=== PATIENT | male | born 1980 | race Caucasian/White ===

== ENCOUNTER 2017-02-13 02:55 | Emergency (ER) | payer MEDICAID ==
[~2017-02-13] VITALS: Ht 165.1 cm; Wt 77.0 kg
[~2017-02-13 02:55] MED LIST: FOLI-49 PO; MULTI PO; PANT40TA3 PO
[2017-02-13 03:05] VITALS: Ht 165.1 cm; Wt 77.0 kg
[2017-02-13] MEDS ORDERED: ONDANSETRON 4 MG INJ IV STA ×2 (03:33→06:05)
[2017-02-13] MEDS ORDERED: SOD CHLORIDE 0.9% 1,000 ML IV STA (03:33)
[2017-02-13] MEDS ORDERED: morphine 4 MG/ML VIAL IV STA (03:33)
--- NOTE | 2017-02-13 03:37 | ERD ---
ER Documentation Chief Complaint Date/Time DATE: 02/13/17 TIME: 03:35 Chief Complaint epigastric pain radiating to sides since last nite,last intake was alcohol HPI Patient is a 36-year-old male who presents with sudden onset, constant, progressive, severe epigastric pain radiating to the left upper and right upper quadrants of the abdomen. Symptoms was around 6 PM last night. Patient states that he thinks he ate some bad [place] food. He states he has been vomiting numerous times with small chunks of blood. He is also had diarrhea that is yellow. He states that he has subjective fever. He denies back pain. He reports having alcohol 2 nights ago, but denies any alcohol last night. ROS All systems reviewed and are negative except as per history of present illness. Medications Home Meds Active Scripts Omeprazole* (Omeprazole*) 20 Mg Capsule., 20 MG PO BID, #20 Prov:GRISELDA BROOKS MD 02/13/17 Ondansetron (Ondansetron Odt) 4 Mg Tab.rapdis, 4 MG PO Q6H Y for NAUSEA AND/OR VOMITING, #15 TAB Prov:GRISELDA BROOKS MD 02/13/17 Multivitamins* (Theragran*) 1 Tab Tab, 1 TAB PO DAILY for 30 Days, TAB Prov:CHEIKH ARGUETA 11/30/15 Folic Acid* (Folic Acid*) 1 Mg Tablet, 1 MG PO DAILY for 30 Days, TAB Prov:CHEIKH ARGUETA 11/30/15 Pantoprazole* (Protonix*) 40 Mg Tablet., 40 MG PO DAILY for 30 Days, TAB Prov:CHEIKH ARGUETA 11/30/15 Allergies Allergies: Coded Allergies: No Known Allergy (Unverified , 11/27/15) PMhx/Soc Past medical history: Hypertension Past surgical history: Tracheostomy Social history: Drinks alcohol, denies illicit drugs History of Surgery: No (not indicated at this time) Anesthesia Reaction: No Hx Neurological Disorder: No Hx Respiratory Disorders: No Hx Cardiac Disorders: No Hx Psychiatric Problems: Yes (DEPRESS) Hx Miscellaneous Medical Probl: Yes (see notes) Hx Alcohol Use: Yes Hx Substance Use: No Hx Tobacco Use: Yes FmHx Family History: No coronary disease, No diabetes Physical Exam Vitals Vital Signs Date Time Temp Pulse Resp B/P Pulse Ox O2 Delivery O2 Flow Rate FiO2 9/24/17 05:53 92 20 153/97 96 Room Air 02/13/17 05:42 98 20 155/105 96 Room Air 02/13/17 04:07 98 20 179/120 96 Room Air 02/13/17 03:05 98.5 125 20 179/95 96 Physical Exam Const: Alert, in mild distress Head: Atraumatic Eyes: Normal Conjunctiva, No pallor, no icterus ENT: Normal External Ears, Nose and Mouth. Neck: Full range of motion..~ No meningismus. Resp: Clear to auscultation bilaterally, No wheezes, no rales Cardio: Tachycardia, regular rhythm, no murmurs Abd: Soft, Nondistended, tender in the epigastrium, left upper quadrant and right upper quadrant. No lower quadrant abdominal tenderness. No rebound. Mild voluntary guarding in upper quadrants. Skin: No petechiae or rashes Back: No midline or flank tenderness Ext: No cyanosis, or edema Neur: Awake and alert, Cranial nerves II through XII intact bilaterally, strength and sensation full in 4 extremes. Slightly slurred speech. Psych: Normal Mood and Affect Result Diagram: 02/13/1731402/13/17314 Results 24 hrs Laboratory Tests Test 02/13/17 03:15 02/13/17 03:50 White Blood Count 7.310^3/ul Red Blood Count 5.2510^6/ul Hemoglobin 14.7g/dl Hematocrit 41.7% Mean Corpuscular Volume 79.4fl Mean Corpuscular Hemoglobin 28.0pg Mean Corpuscular Hemoglobin Concent 35.3g/dl Red Cell Distribution Width 14.9% Platelet Count 65999^3/UL Mean Platelet Volume 10.9fl Neutrophils % 48.0% Lymphocytes % 42.4% Monocytes % 8.1% Eosinophils % 0.5% Basophils % 0.7% Nucleated Red Blood Cells % 0.0/100WBC Neutrophils # 3.510^3/ul Lymphocytes # 3.110^3/ul Monocytes # 0.610^3/ul Eosinophils # 0.010^3/ul Basophils # 0.110^3/ul Nucleated Red Blood Cells # 0.010^3/ul Prothrombin Time 13.6Sec Prothrombin Time Ratio 1.1 INR International Normalized Ratio 1.04 Activated Partial Thromboplast Time 33.4Sec Sodium Level 142mmol/L Potassium Level 4.0mmol/L Chloride Level 106mmol/L Carbon Dioxide Level 21mmol/L Anion Gap 19 Blood Urea Nitrogen 12mg/dl Creatinine 0.71mg/dl Glucose Level 118mg/dl Calcium Level 8.1mg/dl Total Bilirubin 0.3mg/dl Direct Bilirubin 0.00mg/dl Indirect Bilirubin 0.3mg/dl Aspartate Amino Transf (AST/SGOT) 284IU/L Alanine Aminotransferase (ALT/SGPT) 166IU/L Alkaline Phosphatase 106IU/L Total Protein 8.6g/dl Albumin 4.6g/dl Globulin 4.00g/dl Albumin/Globulin Ratio 1.15 Lipase 126U/L Ethyl Alcohol Level 328.0mg/dl Urine Color STRAW Urine Clarity CLEAR Urine pH 5.0 Urine Specific [place] 1.012 Urine Ketones NEGATIVEmg/dL Urine Nitrite NEGATIVEmg/dL Urine Bilirubin NEGATIVEmg/dL Urine Urobilinogen NEGATIVEmg/dL Urine Leukocyte Esterase NEGATIVELeu/ul Urine Hemoglobin NEGATIVEmg/dL Urine Glucose NEGATIVEmg/dL Urine Total Protein NEGATIVEmg/dl Urine Opiates Screen Positive Urine Barbiturates Negative Urine Amphetamines Screen Negative Urine Benzodiazepines Screen Negative Urine Cocaine Screen Negative Urine Cannabinoids Negative Current Medications Medications (Trade) Dose Ordered Sig/Umesh Route PRN Reason Start Time Stop Time Status Last Admin Dose Admin Sodium Chloride (NS) 1,000 ml @ 1,000 mls/hr Q1H STAT IV 02/13/17 03:33 02/13/17 04:32 DC 02/13/17 04:06 Morphine Sulfate (morphine) 4 mg ONCE STAT IV 02/13/17 03:33 02/13/17 03:35 DC 02/13/17 04:06 Ondansetron HCl (Zofran Inj) 4 mg ONCE STAT IV 02/13/17 03:33 02/13/17 03:35 DC 02/13/17 04:06 Pantoprazole (Protonix Iv) 40 mg ONCE ONCE IV 02/13/17 04:00 02/13/17 04:01 DC 02/13/17 04:06 Dicyclomine HCl 10 mg 10 mg ONCE ONCE IM 02/13/17 04:00 02/13/17 04:01 DC 02/13/17 04:00 Sodium Chloride (NS) 1,000 ml @ 1,000 mls/hr Q1H ONCE IV 02/13/17 05:30 02/13/17 06:29 DC 02/13/17 05:28 Labetalol HCl (Labetalol) 10 mg ONCE ONCE IV 02/13/17 06:00 02/13/17 06:01 DC 02/13/17 05:53 Ondansetron HCl (Zofran Inj) 4 mg ONCE STAT IV 02/13/17 06:05 02/13/17 06:18 DC Procedures/MDM EKG read by me: Time 0356, rate 108 Rhythm: Sinus tachycardia [place]: Normal Intervals: Normal ST-T waves: no ischemic changes Ectopy: No Q-waves: No Impression: Tachycardia without ischemia or ectopy MDM: Patient is a 36-year-old male who presents to the ER with epigastric pain and vomiting. He has multiple visits with similar symptoms related to alcohol abuse. He denies recent alcohol use, but his alcohol level is 326. He has no evidence of acute pancreatitis. He does have evidence of transaminitis. He has a nonsurgical abdomen and benign x-ray. His vital signs are otherwise unremarkable. He has a normal hemoglobin and emesis does not show gross hematuria but has mild coffee-ground appearance. Symptoms are consistent with alcoholic gastritis. Patient was given pain medication, hydration, antiemetics and PPI. He will be observed in the ER until clinically sober and able to tolerate oral intake. He was endorsed to the oncoming ER physician with plan to discharge when sober and tolerating oral intake with prescriptions for Zofran and omeprazole. If he is unable to tolerate oral intake, he may require admission. Departure Diagnosis: Primary Impression: Gastritis due to alcohol without hemorrhage Chronicity: acute Qualified Code: K29.20 - Acute alcoholic gastritis without hemorrhage Additional Impressions: Vomiting Vomiting type: unspecified Vomiting Intractability: non-intractable Nausea presence: with nausea Qualified Code: R11.2 - Non-intractable vomiting with nausea, unspecified vomiting type Transaminitis Alcohol intoxication Complication of substance-induced condition: uncomplicated Qualified Code: F10.920 - Alcoholic intoxication without complication Condition: GRISELDA Ramírez MD Feb 13, 2017 03:37
[2017-02-13] MEDS ORDERED: DICYCLOMINE 20 MG INJ IM ONE (04:00)
[2017-02-13] MEDS ORDERED: PANTOPRAZOLE 40 MG INJ IV ONE (04:00)
[2017-02-13 04:12] LABS: BASOPHIL # 0.1 10^3/ul (0.0-0.1); BASOPHILS % 0.7 % (0.0-2.0); EOSINOPHILS % 0.5 % (0.0-7.0); HEMATOCRIT 41.7 % (42.0-52.0); HEMOGLOBIN 14.7 g/dl (14.0-18.0); LYMPHOCYTES # 3.1 10^3/ul (0.8-2.9); LYMPHOCYTES % 42.4 % (15.0-51.0); MEAN CORPUSCULAR HGB CONC 35.3 g/dl (32.0-37.0); MEAN CORPUSCULAR VOLUME 79.4 fl (82.0-101.0); MEAN PLATELET VOLUME 10.9 fl (7.4-10.4); MONOCYTE # 0.6 10^3/ul (0.3-0.9); MONOCYTES % 8.1 % (0.0-11.0); NEUTROPHIL # 3.5 10^3/ul (1.6-7.5); PLATELET COUNT 289 10^3/UL (140-415); RED BLOOD COUNT 5.25 10^6/ul (4.70-6.10); RED CELL DISTRIBUTION WIDTH 14.9 % (11.5-14.5); WHITE BLOOD COUNT 7.3 10^3/ul (4.8-10.8)
[2017-02-13 04:19] LABS: ADD UMIC NO; UR ASCORBIC ACID NEGATIVE (NEGATIVE); UR BILIRUBIN (Dip) NEGATIVE (NEGATIVE); UR BLOOD (Dip) NEGATIVE (NEGATIVE); UR CLARITY CLEAR (CLEAR); UR COLOR STRAW (YELLOW); UR GLUCOSE (Dip) NEGATIVE (NEGATIVE); UR KETONES (Dip) NEGATIVE (NEGATIVE); UR LEUKOCYTE ESTERASE (Dip) NEGATIVE Leu/ul (NEGATIVE); UR NITRITE (Dip) NEGATIVE (NEGATIVE); UR SPECIFIC GRAVITY (Dip) 1.012 (1.003-1.030); UR TOTAL PROTEIN (Dip) NEGATIVE (NEGATIVE); UR UROBILINOGEN (Dip) NEGATIVE (NEGATIVE)
[2017-02-13 04:19] LABS: INR 1.04; PROTIME 13.6 Sec (12.2-14.2); PT RATIO 1.1
[2017-02-13 04:23] LABS: ALBUMIN 4.6 g/dl (3.3-4.9); ALBUMIN/GLOBULIN RATIO 1.15; BILIRUBIN,INDIRECT 0.3 mg/dl (0-1.1); BILIRUBIN,TOTAL 0.3 mg/dl (0.2-1.3); CALCIUM 8.1 mg/dl (8.4-10.2); CREATININE 0.71 mg/dl (0.61-1.24); TOTAL PROTEIN 8.6 g/dl (6.1-8.1)
[2017-02-13 04:33] LABS: OPIATES Positive (NEGATIVE)
[2017-02-13 04:36] LABS: BARBITURATES Negative (NEGATIVE); BENZODIAZEPINES Negative (NEGATIVE); CANNABINOIDS Negative (NEGATIVE); COCAINE Negative (NEGATIVE)
--- NOTE | 2017-02-13 04:38 | RADRPT ---
PROCEDURE: XR Abdomen. CLINICAL INDICATION: Abdominal pain TECHNIQUE: Upright and supine abdominal x-rays were obtained. COMPARISON: None. FINDINGS: Bowel david are seen in the right lower quadrant. The bowel gas pattern is normal. There is no clarence dence of obstruction. There are no air-fluid levels. There are no abnormal calcifications overlying the urinary tracts. The soft tissues are unremarkable. There is no free intraperitoneal air. The osseus structures are unremarkable. IMPRESSION: Unremarkable abdomen radiographs. RPTAT: HCNS Physician Jennifer Date Time Electronically viewed and signed by Physician Jennifer on 02/13/2017 04:38 CS/
[2017-02-13 05:24] LABS: PARTIAL THROMBOPLASTIN TIME 33.4 Sec (25.0-35.0)
[2017-02-13] MEDS ORDERED: SOD CHLORIDE 0.9% 1,000 ML IV ONE (05:30)
[2017-02-13] MEDS ORDERED: LABETALOL HCL 20MG INJ IV ONE (06:00)
[2017-02-13] MEDS ORDERED: ONDA4TAB14 PO (06:19)
[2017-02-13] MEDS ORDERED: OMEP20CA16 PO (06:19)
[2017-02-13 07:38] VITALS: BP 144/98; PULSE 94; RESP 22
[2017-02-13] MEDS ORDERED: LIDOCAINE/MYLANTA 40 ML BTL PO STA (09:03)
== END 2017-02-13 11:01 | disposition home or self-care (01) ==
LOC: E/R 02:55
DX: K29.20 Alcoholic gastritis without bleeding (principal); R74.0 Nonspecific elevation of levels of transaminase and lactic acid dehydrogenase [LDH]; F10.920 Alcohol use, unspecified with intoxication, uncomplicated; I10 Essential (primary) hypertension; Z87.891 Personal history of nicotine dependence
CPT/HCPCS: 36415; 74010; 80053; 80306; 80307; 81003; 83690; 85025; 85610; 85730; 93005; 96372; 96374; 96375; 96376; C9113; J0500; J2270; J2405; J7030; Z7502; Z7610

== ENCOUNTER 2017-05-29 15:39 | Emergency (ER) | END 2017-05-30 00:44 | disposition home or self-care (01) ==

== ENCOUNTER 2018-04-29 09:05 | Inpatient (IN) | END 2018-04-30 13:57 | disposition home or self-care (01) | DRG 379 ==

== ENCOUNTER 2018-10-30 20:50 | Emergency (ER) | payer MEDICAID ==
[~2018-10-30] VITALS: Ht 165.1 cm; Wt 72.4 kg
[~2018-10-30 20:50] MED LIST changes: +CHLO25CA9 PO; +FAMO20TA18 PO; -FOLI-49 PO; -MULTI PO; +ONDA4TAB8 PO; -PANT40TA3 PO
[2018-10-30 20:56] VITALS: Ht 165.1 cm; Wt 72.4 kg
[2018-10-31] MEDS ORDERED: FAMOTIDINE 20 MG TAB PO STA (00:03)
[2018-10-31] MEDS ORDERED: KETOROLAC 30 MG INJ IM STA (00:03)
[2018-10-31] MEDS ORDERED: LIDOCAINE/MYLANTA 40 ML BTL PO STA (00:03)
[2018-10-31] MEDS ORDERED: FAMO-96 PO (01:38)
[2018-10-31] MEDS ORDERED: IBUP-1542 PO (01:38)
[2018-10-31] MEDS ORDERED: NAPR-985 PO (01:38)
--- NOTE | 2018-10-31 02:03 | ERD ---
ER Documentation Chief Complaint Chief Complaint abd/cp x 3 days. HPI 37-year-old male with past medical history of EtOH abuse, inguinal hernia, chronic abdominal pain who presents with complaint of right upper quadrant abdominal pain over the past 3 days. Patient denies associated nausea, vomiting, diarrhea, radiation of pain, urinary symptoms as a burning, itching, frequency, change in urine odor. Also with complaint of left-sided chest pain which she describes as pressure-like with no radiation, not associated with diaphoresis, nausea, vomiting, reported shortness of breath or dyspnea. He denies personal or family history of OR or cardiac disease. At time of evaluation patient nontoxic-appearing with normal triage vital signs. He denies active drug use for reports he drank about 12 beers on Tuesday, denies EtOH use over the weekend or today. Reports at times feeling anxious but at time of evaluation patient calm. Patient requesting medications for anxiety. He otherwise without complaint. ROS All systems reviewed and are negative except as per history of present illness. Medications Home Meds Active Scripts Lorazepam* (Ativan*) 0.5 Mg Tablet, 0.5 MG PO Q8H PRN for ANXIETY, #10 TAB Prov:VAL DOMINGOHO PA-C 10/31/18 Ibuprofen* (Motrin*) 600 Mg Tab, 600 MG PO Q6, #30 TAB Prov:MAHI DOMINGO PA-C 10/31/18 Naproxen* (Naprosyn*) 500 Mg Tablet, 500 MG PO BID PRN for PAIN AND/OR INFLAMMATION, #30 TAB Prov:VAL DOMINGOHO PA-C 10/31/18 Famotidine* (Pepcid*) 20 Mg Tablet, 20 MG PO BID for 4 Days, TAB Prov:JEUDINEGETHO PA-C 10/31/18 Famotidine* (Famotidine*) 20 Mg Tablet, 20 MG PO BID for 30 Days, #60 TAB 1 Refill Prov:YAZ MCGRAW 04/30/18 Chlordiazepoxide* (Chlordiazepoxide*) 25 Mg Capsule, 25 MG PO Q8 PRN for CONTROL WITHDRAWAL SYMPTOMS, #15 CAP Prov:CHIDI COTTRELL MD 05/29/17 Ondansetron Hcl* (Zofran*) 4 Mg Tablet, 8 MG PO Q6H for NAUSEA AND/OR VOMITING, #20 TAB Prov:CHIDI COTTRELL MD 05/29/17 Allergies Allergies: Coded Allergies: No Known Allergy (Unverified , 04/29/18) PMhx/Soc History of Surgery: Yes (APPENDECTOMY ) Anesthesia Reaction: No Hx Neurological Disorder: No Hx Respiratory Disorders: No Hx Cardiac Disorders: No Hx Psychiatric Problems: Yes (DEPRESSION) Hx Miscellaneous Medical Probl: Yes Hx Alcohol Use: Yes Hx Substance Use: No Hx Tobacco Use: No Smoking Status: Never smoker FmHx Family History: No diabetes, No coronary disease, No other Physical Exam Vitals Vital Signs Date Temp Pulse Resp B/P (MAP) Pulse Ox O2 O2 Flow FiO2 Time Delivery Rate 10/30/18 98.2 97 18 145/96 98 20:56 (112) Physical Exam I have reviewed the triage vital signs. Const: Well nourished, well developed, appears stated age Eyes: PERRL, no conjunctival injection HENT: NCAT, Neck supple without meningismus CV: RRR, Warm, well-perfused extremities RESP: CTAB, Unlabored respiratory effort GI: soft,tender to right upper quadrant and epigastrium, no rebound or guarding, right-sided inguinal hernia which is reducible, nontender to palpation,, non- distended MSK: No gross deformities appreciated Skin: Warm, dry. No rashes Neuro: grossly non focal Psych: Appropriate mood and affect. Result Diagram: 10/31/186 10/31/18 0016 Results 24 hrs Laboratory Tests Test 10/31/18 00:16 White Blood Count 5.5 10^3/ul Red Blood Count 5.55 10^6/ul Hemoglobin 15.0 g/dl Hematocrit 44.3 % Mean Corpuscular Volume 79.8 fl Mean Corpuscular Hemoglobin 27.0 pg Mean Corpuscular Hemoglobin Concent 33.9 g/dl Red Cell Distribution Width 21.3 % Platelet Count 222 10^3/UL Mean Platelet Volume 10.3 fl Immature Granulocytes % 0.200 % Neutrophils % 53.6 % Lymphocytes % 36.8 % Monocytes % 7.5 % Eosinophils % 1.5 % Basophils % 0.4 % Nucleated Red Blood Cells % 0.0 /100WBC Immature Granulocytes # 0.010 10^3/ul Neutrophils # 2.9 10^3/ul Lymphocytes # 2.0 10^3/ul Monocytes # 0.4 10^3/ul Eosinophils # 0.1 10^3/ul Basophils # 0.0 10^3/ul Nucleated Red Blood Cells # 0.0 10^3/ul Urine Color YELLOW Urine Clarity CLEAR Urine pH 6.0 Urine Specific [place] 1.012 Urine Ketones NEGATIVE mg/dL Urine Nitrite NEGATIVE mg/dL Urine Bilirubin NEGATIVE mg/dL Urine Urobilinogen NEGATIVE mg/dL Urine Leukocyte Esterase NEGATIVE [place]/ul Urine Hemoglobin NEGATIVE mg/dL Urine Glucose NEGATIVE mg/dL Urine Total Protein NEGATIVE mg/dl Sodium Level 139 mmol/L Potassium Level 4.1 mmol/L Chloride Level 102 mmol/L Carbon Dioxide Level 25 mmol/L Anion Gap 12 Blood Urea Nitrogen 9 mg/dl Creatinine 0.69 mg/dl Est Glomerular Filtrat Rate mL/min > 60 mL/min Glucose Level 118 mg/dl Calcium Level 9.8 mg/dl Total Bilirubin 0.9 mg/dl Direct Bilirubin 0.00 mg/dl Indirect Bilirubin 0.9 mg/dl Aspartate Amino Transf (AST/SGOT) 204 IU/L Alanine Aminotransferase (ALT/SGPT) 522 IU/L Alkaline Phosphatase 86 IU/L Total Protein 8.6 g/dl Albumin 4.7 g/dl Globulin 3.90 g/dl Albumin/Globulin Ratio 1.20 Lipase 41 U/L Urine Opiates Screen Negative Urine Barbiturates Negative Urine Amphetamines Screen Negative Urine Benzodiazepines Screen Negative Urine Cocaine Screen Negative Urine Cannabinoids Negative Ethyl Alcohol Level < 10.0 mg/dl Current Medications Medications Dose Sig/Umesh Start Time Status Last (Trade) Ordered Route PRN Stop Time Admin Dose Reason Admin Famotidine 20 mg ONCE STAT 10/31/18 DC 10/31/18 (Pepcid) PO 00:03 00:19 10/31/18 00:06 40 ml ONCE STAT 10/31/18 DC 10/31/18 Miscellaneous PO 00:03 00:18 Medication 10/31/18 00:06 (Gi Cocktail (2)) Ketorolac 30 mg ONCE STAT 10/31/18 DC 10/31/18 Tromethamine IM 00:03 00:19 (Toradol) 10/31/18 00:06 Procedures/MDM This patient presents with abdominal pain of unclear etiology. Their evaluation has not identified a emergent etiology for the abdominal pain. Specifically, given the very benign exam, normal laboratory studies I have a very low suspicion for appendicitis, acute pancreatitis, cholecystitis, ischemic bowel, bowel perforation, incarcerated inguinal hernia, or any other life threatening disease. No signs or symptoms of active EtOH withdrawal. ED course: Ultrasound right upper quadrant without acute findings, normal limits liver, normal limit gallbladder Labs on remarkable, lipase within normal limits, no leukocytosis UA unremarkable Will discharge with appropriate pain medication, famotidine, patient requesting Ativan we will give short course of low-dose, patient advised repeatedly to establish care with primary care provider. I have discussed with the patient the level of uncertainty with undifferentiated abdominal pain and clearly explained the need to follow-up as noted on the discharge instructions, or return to the Emergency Department immediately if the pain worsens, develops fever, persistent and uncontrollable vomiting, or for any new symptoms or concerns. I discussed with the patient that this presentation today for abdominal pain could represent a significant risk for an acute abdominal process. Although the tests in the ED were essentially normal, there is still a possibility of a process such as appendicitis, diverticulitis, cholecystitis, ulcer, early bowel obstruction, mesenteric ischemia, kidney stone, or even kidney infection which could subsequently cause disability or . Departure Diagnosis: Primary Impression: Abdominal pain Condition: Stable Patient Instructions: Abdominal Pain Referrals: [facility] YOU HAVE RECEIVED A MEDICAL SCREENING EXAM AND THE RESULTS INDICATE THAT YOU DO NOT HAVE A CONDITION THAT REQUIRES URGENT TREATMENT IN THE EMERGENCY DEPARTMENT. FURTHER EVALUATION AND TREATMENT OF YOUR CONDITION CAN WAIT UNTIL YOU ARE SEEN IN YOUR DOCTORS OFFICE WITHIN THE NEXT 1-2 DAYS. IT IS YOUR RESPONSIBILITY TO MAKE AN APPOINTMENT FOR FOLOW-UP CARE. IF YOU HAVE A PRIMARY DOCTOR --you should call your primary doctor and schedule an appointment IF YOU DO NOT HAVE A PRIMARY DOCTOR YOU CAN CALL OUR PHYSICIAN REFERRAL HOTLINE AT IF YOU CAN NOT AFFORD TO SEE A PHYSICIAN YOU CAN CHOSE FROM THE FOLLOWING [facility] [address] [facility] [address] [facility] [address] [facility] [address] [facility] [address] [facility]. [facility]. [address] Additional Instructions: Call your primary care doctor TOMORROW for an appointment during the next 2-3 days.See the doctor sooner or return here if your condition worsens before your appointment time. MAHI DOMINGO PA-C Oct 31, 2018 02:03
[2018-10-31] MEDS ORDERED: LORA-441 PO (02:13)
[2018-10-31] MEDS ORDERED: LISI-471 PO (03:10)
[2018-10-31 04:11] VITALS: BP 154/95; PULSE 74; RESP 20
== END 2018-10-31 04:12 | disposition home or self-care (01) ==
LOC: FTE 20:50
DX: R10.11 Right upper quadrant pain (principal)
CPT/HCPCS: 36415; 76705; 80053; 80307; 81003; 83690; 85025; 93005; 96372; J1885; Z7502; Z7610

== ENCOUNTER 2019-01-11 13:08 | Emergency (ER) | payer MEDICAID ==
[~2019-01-11] VITALS: Wt 73.4 kg
[~2019-01-11 13:08] MED LIST changes: +FAMO-96 PO; +IBUP-1542 PO; +LISI-471 PO; +LORA-441 PO; +NAPR-985 PO; +POLY17PO6 PO
[2019-01-11] MEDS ORDERED: LIDOCAINE/MYLANTA 40 ML BTL PO STA (13:53)
[2019-01-11] MEDS ORDERED: BELLADONNA/PHENOBARBITAL TAB PO STA (13:53)
[2019-01-11] MEDS ORDERED: ONDANSETRON 4 MG INJ IV STA ×2 (13:53→16:25)
[2019-01-11] MEDS ORDERED: FAMOTIDINE 20 MG INJ IV ONE (14:00)
[2019-01-11] MEDS ORDERED: SOD CHLORIDE 0.9% 1,000 ML IV ONE (14:00)
[2019-01-11] MEDS ORDERED: DICYCLOMINE 20 MG INJ IM ONE (16:30)
[2019-01-11 16:49] VITALS: BP 135/96; PULSE 92; RESP 16
== END 2019-01-11 16:53 | disposition home or self-care (01) ==
LOC: E/R 13:08
DX: K29.20 Alcoholic gastritis without bleeding (principal); F10.920 Alcohol use, unspecified with intoxication, uncomplicated; K59.00 Constipation, unspecified; I10 Essential (primary) hypertension
CPT/HCPCS: 36415; 74176; 80053; 80307; 81003; 83690; 85025; 96361; 96372; 96374; 96375; 96376; J0500; J2405; J7030; Z7502; Z7610